=== PATIENT | male | born 1950 | race Caucasian/White ===

== ENCOUNTER → 2016-07-14 | Outpatient (CLI) | payer OTHER ==
[~2016-07-14] MED LIST: ACTOS15 MG PO; AMARYL4 MG PO; ASPIRIN FOR CHI81 MG PO; ASPIRIN81 M1 PO; B12100 MC1 PO; CYCLOBENZAPRINE10 MG PO; DAYPRO600 M1 PO; DICLOFENAC SOD75 MG PO; GRALISE300 M1 PO; HYDROCODONE/ACE1 T12 PO; LISINOPRIL2.5 MG PO; LOVASTATIN20 MG PO; MELOXICAM7.5 MG PO; METFORMIN1000 MG PO; MEVACOR20 MG PO; NATURE'S BLEND500 M1 PO; NEXIUM40 MG PO; PRILOSEC40 MG PO; TAMSULOSIN HYD0.4 MG PO; TEMAZEPAM30 MG PO; TIZANIDINE4 MG PO; VICODIN 500 MG-1 TAB PO; VITAMIN D31000 IU PO; [UNRECOGNIZED DRUG - REMARK]
== END | disposition home or self-care (01) ==
LOC: CT 07-10 10:00
DX: I25.10 Atherosclerotic heart disease of native coronary artery without angina pectoris (principal); J44.9 Chronic obstructive pulmonary disease, unspecified; Q85.8 Other phakomatoses, not elsewhere classified; Z87.891 Personal history of nicotine dependence

== ENCOUNTER 2016-10-26 09:31 | Emergency (ER) | payer OTHER ==
[~2016-10-26] VITALS: Ht 167.6 cm; Wt 106.6 kg
[2016-10-26 10:24] LABS: BASO # 0.1 10*3/uL (0.0-0.1); BASO % 0.6 % (0.0-1.0); EOS # 0.2 10*3/uL (0.0-0.4); EOS % 2.8 % (1.0-4.0); HEMATOCRIT 37.4 % (42.0-52.0); HEMOGLOBIN 12.1 g/dl (14.0-18.0); LYMPH # 2.5 10*3/uL (1.3-4.4); LYMPH % 31.1 % (27.0-41.0); MEAN CELL VOLUME 91.9 fl (80.0-94.0); MEAN CORPUSCULAR HGB 29.7 pg (27.0-31.0); MEAN CORPUSCULAR HGB CONC 32.4 g/dl (33.0-37.0); MEAN PLATELET VOLUME 10.7 fl (9.6-12.3); MONO # 0.5 10*3/uL (0.1-1.0); MONO % 5.5 % (3.0-9.0); NEUT # 4.9 10*3/uL (2.3-7.9); NEUT % 59.6 % (47.0-73.0); PLATELET COUNT AUTOMATED 212 10*3/uL (130-400); RED BLOOD COUNT 4.07 10*6/uL (4.50-5.90); RED CELL DISTRI WIDTH 14.6 % (0-14.5); WHITE BLOOD COUNT 8.2 10*3/uL (4.8-10.8)
[2016-10-26 10:41] LABS: ALBUMIN 3.3 gm/dl (3.1-4.5); BILIRUBIN, TOTAL 0.5 mg/dl (0.2-1.0); BUN 18 mg/dl (7-24); CARBON DIOXIDE 25 mmol/L (21-32); CHLORIDE 108 mmol/L (98-107); EST GLOM FILT AFRICAN AMERICAN > 60 ml/min; GLUCOSE 154 mg/dL (65-99); POTASSIUM 4.4 mmol/L (3.5-5.1); SGOT/AST 44 IU/L (3-35); SGPT/ALT 45 U/L (12-78); SODIUM 139 mmol/L (136-145); TOTAL PROTEIN 7.8 gm/dL (6.4-8.2)
[2016-10-26 10:42] LABS: ALKALINE PHOSPHATASE 69 U/L (45-117)
== END 2016-10-26 11:13 | disposition home or self-care (01) ==
LOC: ED 09:31
PROVIDERS: Registered Nurse
DX: R45.1 Restlessness and agitation (principal); R51 Headache; T42.8X5A Adverse effect of antiparkinsonism drugs and other central muscle-tone depressants, initial encounter; I10 Essential (primary) hypertension; Z79.899 Other long term (current) drug therapy; Z79.82 Long term (current) use of aspirin; E11.40 Type 2 diabetes mellitus with diabetic neuropathy, unspecified; Z79.4 Long term (current) use of insulin; Y92.9 Unspecified place or not applicable

== ENCOUNTER → 2017-08-31 | Outpatient (CLI) | payer OTHER | END | disposition home or self-care (01) | LOC: CT 15:51 | DX: R31.9 Hematuria, unspecified (principal) ==

== ENCOUNTER → 2017-09-19 | Outpatient (CLI) | payer OTHER ==
[2017-09-19 13:41] LABS: BASO # 0.1 10*3/uL (0.0-0.1); BASO % 0.9 % (0.0-1.0); EOS # 0.2 10*3/uL (0.0-0.4); EOS % 3.4 % (1.0-4.0); HEMATOCRIT 38.8 % (42.0-52.0); HEMOGLOBIN 12.4 g/dl (14.0-18.0); LYMPH % 28.3 % (27.0-41.0); MEAN CELL VOLUME 94.6 fl (80.0-94.0); MEAN CORPUSCULAR HGB 30.2 pg (27.0-31.0); MEAN PLATELET VOLUME 10.5 fl (9.6-12.3); MONO # 0.5 10*3/uL (0.1-1.0); MONO % 6.6 % (3.0-9.0); NEUT # 4.3 10*3/uL (2.3-7.9); NEUT % 60.7 % (47.0-73.0); PLATELET COUNT AUTOMATED 193 10*3/uL (130-400); RED CELL DISTRI WIDTH 12.3 % (0-14.5)
[2017-09-19 14:12] LABS: ALBUMIN 3.6 gm/dl (3.1-4.5); BUN 15 mg/dl (7-24); CHLORIDE 108 mmol/L (98-107); CREATININE 1.05 mg/dL (0.70-1.30); POTASSIUM 4.5 mmol/L (3.5-5.1); SGOT/AST 31 IU/L (3-35); SGPT/ALT 37 U/L (12-78); SODIUM 140 mmol/L (136-145); TOTAL PROTEIN 7.7 gm/dL (6.4-8.2)
[2017-09-19 14:14] LABS: ALKALINE PHOSPHATASE 50 U/L (45-117)
== END | disposition home or self-care (01) ==
LOC: US 12:46 → LAB 12:46 → US 13:00
PROVIDERS: Nurse Practitioner Family
DX: Z12.5 Encounter for screening for malignant neoplasm of prostate (principal); I10 Essential (primary) hypertension; E11.9 Type 2 diabetes mellitus without complications; D40.0 Neoplasm of uncertain behavior of prostate; N39.0 Urinary tract infection, site not specified; N20.0 Calculus of kidney; R31.9 Hematuria, unspecified

== ENCOUNTER → 2017-10-20 | Outpatient (CLI) | payer OTHER ==
[~2017-10-20] MED LIST changes: +ATENOLOL25 MG PO; +ELIQUIS5 M1 PO; +GLUCOPHAGE1000 MG PO; +MULTIVITAMINS1 EAC6 PO; +PROSCAR5 M1 PO; +SUPER BETA PROSTATE PO; +VITAMIN B122500 MC1 PO
[2017-10-20 13:10] LABS: BILIRUBIN NEGATIVE (NEGATIVE); BLOOD NEGATIVE (NEGATIVE); CLARITY CLEAR (CLEAR); COLOR YELLOW (YELLOW); GLUCOSE TRACE (NEGATIVE); KETONE NEGATIVE (NEGATIVE); LEUKO ESTERASE NEGATIVE (NEGATIVE); NITRITE NEGATIVE (NEGATIVE); PH 5.5 (5.0-9.0); SPECIFIC GRAVITY 1.025 (1.005-1.030); UROBILINOGEN 0.2 E.U./dl (0.2-1.0)
== END | disposition home or self-care (01) ==
LOC: LAB 12:34
PROVIDERS: Urology
DX: R31.9 Hematuria, unspecified (principal)

== ENCOUNTER → 2017-11-09 | Outpatient (CLI) | payer OTHER ==
--- NOTE | ~2017-11-09 | ST ---
[place], [place] EXERCISE STRESS TEST REPORT NAME: [facility]SON THEODORE [facility] [id number] UNIT #: [id number] ROOM: DOCTOR: NAVYA GOODSON MD BIRTHDATE: [birth year] DOS: REASON FOR TESTING: Evaluation preop. The patient is placed on a monitor. He remained on sinus rhythm with a heart rate of 53 with a blood pressure 134/64. The patient was injected with Lexiscan 0.4 mg. He did not have any complaints other than some mild shortness of breath. Remained in sinus without any ST-T wave changes or arrhythmias. After the Lexiscan infusion was over, he was injected with Cardiolite and stress images were taken. ASSESSMENT AND PLAN: Lexiscan infusion without any ST-T wave changes or arrhythmias. Cardiolite images pending. NAVYA GOODSON MD CM:STRESS:EXERCISE STRESS TEST REPORT [id number] NAVYA GOODSON MD
== END | disposition home or self-care (01) ==
LOC: CARD 01:28
DX: Z01.818 Encounter for other preprocedural examination (principal); R94.31 Abnormal electrocardiogram [ECG] [EKG]; R94.39 Abnormal result of other cardiovascular function study; R53.81 Other malaise

== ENCOUNTER → 2018-03-16 | Outpatient (CLI) | payer OTHER ==
[2018-03-16 14:48] LABS: BASO # 0.1 10*3/uL (0.0-0.1); BASO % 0.9 % (0.0-1.0); EOS # 0.3 10*3/uL (0.0-0.4); HEMATOCRIT 34.3 % (42.0-52.0); HEMOGLOBIN 10.4 g/dl (14.0-18.0); LYMPH # 2.1 10*3/uL (1.3-4.4); LYMPH % 21.4 % (27.0-41.0); MEAN CELL VOLUME 88.9 fl (80.0-94.0); MEAN CORPUSCULAR HGB 26.9 pg (27.0-31.0); MEAN CORPUSCULAR HGB CONC 30.3 g/dl (33.0-37.0); MEAN PLATELET VOLUME 10.6 fl (9.6-12.3); MONO # 0.7 10*3/uL (0.1-1.0); MONO % 7.2 % (3.0-9.0); NEUT # 6.5 10*3/uL (2.3-7.9); PLATELET COUNT AUTOMATED 245 10*3/uL (130-400); RED BLOOD COUNT 3.86 10*6/uL (4.50-5.90); RED CELL DISTRI WIDTH 14.6 % (0-14.5); WHITE BLOOD COUNT 9.7 10*3/uL (4.8-10.8)
[2018-03-16 15:05] LABS: ALBUMIN 3.4 gm/dl (3.1-4.5); CREATININE 1.86 mg/dL (0.70-1.30); POTASSIUM 5.2 mmol/L (3.5-5.1); TOTAL PROTEIN 7.6 gm/dL (6.4-8.2)
[2018-03-18 13:03] LABS: PROSTATE SPECIFIC AG FREE 0.65 ng/mL
== END | disposition home or self-care (01) ==
LOC: LAB 14:11
PROVIDERS: Urology
DX: D40.0 Neoplasm of uncertain behavior of prostate (principal); I10 Essential (primary) hypertension

== ENCOUNTER → 2018-05-06 | Outpatient (CLI) | payer OTHER ==
[~2018-05-06] MED LIST changes: +PREDNISONE50 MG PO; +ROBAXIN500 M1 PO
== END | disposition home or self-care (01) ==
LOC: RAD 19:16
DX: M51.36 Other intervertebral disc degeneration, lumbar region (principal); M43.16 Spondylolisthesis, lumbar region

== ENCOUNTER → 2018-06-20 | Outpatient (CLI) | payer OTHER ==
[2018-06-20 11:02] LABS: ALBUMIN 3.1 gm/dl (3.1-4.5); ALKALINE PHOSPHATASE 55 U/L (45-117); BUN 19 mg/dl (7-24); CHLORIDE 109 mmol/L (98-107); CREATININE 1.32 mg/dL (0.70-1.30); SGOT/AST 19 IU/L (3-35); SGPT/ALT 28 U/L (12-78); SODIUM 141 mmol/L (136-145); T3 UPTAKE 39 % (31-39); THYROXINE (T4) TOTAL 13.8 ug/dl (4.5-12.1); TOTAL PROTEIN 7.2 gm/dL (6.4-8.2)
== END | disposition home or self-care (01) ==
LOC: LAB 10:05
PROVIDERS: Internal Medicine Cardiovascular Disease
DX: I48.91 Unspecified atrial fibrillation (principal); Z79.899 Other long term (current) drug therapy

== ENCOUNTER → 2018-10-02 | Outpatient (CLI) | payer OTHER | END | disposition home or self-care (01) | LOC: LAB 17:10 | DX: D40.0 Neoplasm of uncertain behavior of prostate (principal) ==

== ENCOUNTER → 2018-11-14 | Outpatient (CLI) | payer OTHER ==
[2018-11-16 09:07] LABS: PROSTATE SPECIFIC AG FREE 1.67 ng/mL; PROSTATE SPECIFIC AG, SERUM 5.4 ng/mL (0.0-4.0)
== END | disposition home or self-care (01) ==
LOC: LAB 20:12
PROVIDERS: Nurse Practitioner Family
DX: R97.20 Elevated prostate specific antigen [PSA] (principal)

== ENCOUNTER → 2018-12-23 | Outpatient (CLI) | payer OTHER ==
--- NOTE | ~2018-12-23 | EKG ---
[place], [place] ELECTROCARDIOGRAM REPORT NAME: NELSON THEODORE UNIT #: [id number] ROOM: DOCTOR: EPIPHANY DRAFT REPORT BIRTHDATE: [birth year] [facility] Test Date: 2018-12-23 Test Time: 12:01:44 Pat Name: NELSON THEODORE Department: Room: Gender: Turn Supervisor: Lisa Portillo : 1950 Requested By: JAELYN SPEARS Order Number: [id number] Reading MD: Allen Ortiz MD Measurements Intervals [place] Rate: 49 P: 10 TX: 255 QRS: -32 QRSD: 96 T: 46 QT: 463 QTc: 418 Interpretive Statements Sinus bradycardia Prolonged TX interval Abnormal R-wave progression, late transition Inferior infarct, old No previous ECG available for comparison Electronically Signed On 12-23-2018 14:44:46 PDT by Allen Ortiz MD CM:EKGRPT:ELECTROCARDIOGRAM REPORT 1201 [id number] JAELYN CRUZ DRAFT REPORT JAELYN SPEARS
[2018-12-23 11:49] LABS: BASO % 0.7 % (0.0-1.0); EOS # 0.2 10*3/uL (0.0-0.4); EOS % 3.3 % (1.0-4.0); HEMOGLOBIN 10.6 g/dl (14.0-18.0); LYMPH # 1.3 10*3/uL (1.3-4.4); LYMPH % 20.8 % (27.0-41.0); MEAN CELL VOLUME 97.7 fl (80.0-94.0); MEAN CORPUSCULAR HGB 30.5 pg (27.0-31.0); MEAN CORPUSCULAR HGB CONC 31.2 g/dl (33.0-37.0); MEAN PLATELET VOLUME 10.5 fl (9.6-12.3); MONO # 0.5 10*3/uL (0.1-1.0); MONO % 8.3 % (3.0-9.0); NEUT % 66.2 % (47.0-73.0); PLATELET COUNT AUTOMATED 178 10*3/uL (130-400); RED BLOOD COUNT 3.48 10*6/uL (4.50-5.90); RED CELL DISTRI WIDTH 13.2 % (0-14.5); WHITE BLOOD COUNT 6.1 10*3/uL (4.8-10.8)
[2018-12-23 12:04] LABS: ACT PARTIAL THROMBO TIME 26.3 SECONDS (20.0-32.1); INTERNATIONAL NORM RATIO 0.9 (2.0-3.5)
[2018-12-23 12:16] LABS: ALBUMIN 3.4 gm/dl (3.1-4.5); CREATININE 1.64 mg/dL (0.70-1.30); POTASSIUM 5.6 mmol/L (3.5-5.1); TOTAL PROTEIN 7.3 gm/dL (6.4-8.2)
== END | disposition home or self-care (01) ==
LOC: LAB 10:24
PROVIDERS: Nurse Practitioner Family
DX: Z01.812 Encounter for preprocedural laboratory examination (principal); R00.1 Bradycardia, unspecified

== ENCOUNTER 2019-01-06 14:14 | Inpatient (IN) | payer OTHER ==
[~2019-01-06] VITALS: Ht 167.6 cm; Wt 91.4 kg
[2019-01-06 14:15] VITALS: BP 167/75
[2019-01-06 15:09] LABS: BASO # 0.1 10*3/uL (0.0-0.1); BASO % 0.7 % (0.0-1.0); EOS # 0.3 10*3/uL (0.0-0.4); EOS % 3.2 % (1.0-4.0); HEMATOCRIT 38.8 % (42.0-52.0); HEMOGLOBIN 12.1 g/dl (14.0-18.0); LYMPH # 2.4 10*3/uL (1.3-4.4); MEAN CELL VOLUME 98.5 fl (80.0-94.0); MEAN CORPUSCULAR HGB 30.7 pg (27.0-31.0); MEAN CORPUSCULAR HGB CONC 31.2 g/dl (33.0-37.0); MEAN PLATELET VOLUME 9.5 fl (9.6-12.3); MONO # 0.7 10*3/uL (0.1-1.0); MONO % 7.6 % (3.0-9.0); NEUT # 5.9 10*3/uL (2.3-7.9); NEUT % 63.1 % (47.0-73.0); PLATELET COUNT AUTOMATED 288 10*3/uL (130-400); RED BLOOD COUNT 3.94 10*6/uL (4.50-5.90); RED CELL DISTRI WIDTH 13.3 % (0-14.5); WHITE BLOOD COUNT 9.4 10*3/uL (4.8-10.8)
[2019-01-06 15:24] LABS: ALBUMIN 3.8 gm/dl (3.1-4.5); CREATININE 2.09 mg/dL (0.70-1.30); POTASSIUM 5.8 mmol/L (3.5-5.1); TOTAL PROTEIN 8.2 gm/dL (6.4-8.2)
[2019-01-06 15:27] LABS: ACT PARTIAL THROMBO TIME 30.3 SECONDS (20.0-32.1)
[2019-01-06 15:28] LABS: TROPONIN I 0.087 ng/ml (<0.045)
--- NOTE | 2019-01-06 15:28 | NUR ---
GLUCOSE 42, TROPONIN 0.087 C. RONA NOTIFIED
[2019-01-06 15:36] LABS: BILIRUBIN 1+ (NEGATIVE); BLOOD 1+ (NEGATIVE); CLARITY CLEAR (CLEAR); COLOR YELLOW (YELLOW); GLUCOSE NEGATIVE (NEGATIVE); KETONE TRACE (NEGATIVE); LEUKO ESTERASE NEGATIVE (NEGATIVE); NITRITE NEGATIVE (NEGATIVE); SPECIFIC GRAVITY >= 1.030 (1.005-1.030); UROBILINOGEN 0.2 E.U./dl (0.2-1.0)
--- NOTE | 2019-01-06 15:40 | NUR ---
PT GIVEN RK CRACKERS AND ORANGE JUICE FOR LOW BLOOD SUGAR. REFUSING IV AT THIS TIME.
[2019-01-06 15:46] LABS: BACTERIA 2+; EPITHELIAL CELLS 16-20; MUCOUS TRACE
[2019-01-06 17:00] VITALS: BP 155/62
--- NOTE | 2019-01-06 17:12 | NUR ---
A 68, admitted to , under the services of NAVYA Baum MD with a diagnosis of Abnormal EKG Elevated Troponin. Chief complaint is basic needs/other complaints. Patient arrived via stretcher from ER. Monitor applied. Initial assessment completed. Vital signs taken and recorded. NAVYA BAUM MD notified of admission to the unit. Orders received. See assessment for past medical history, medications and allergies. Patient and/or family oriented to unit. [address] visitation policy reviewed. Clothing/patient valuable form completed. ANA GREENBERG
[2019-01-06] MEDS ORDERED: AMIODARONE HYD200 MG PO (17:32)
[2019-01-06] MEDS ORDERED: CELEBREX100 MG PO (17:36)
[2019-01-06] MEDS ORDERED: Mysoline50 MG PO (17:38)
[2019-01-06] MEDS ORDERED: LIPITOR20 MG PO (17:39)
[2019-01-06] MEDS ORDERED: NORCO 7.5-3251 EACH PO (17:40)
--- NOTE | 2019-01-06 17:46 | NUR ---
Notified of patients arrival to unit. See new orders.
[2019-01-06 20:00] VITALS: BP 155/75
[2019-01-07] VITALS: BP 138/53
[2019-01-07 06:19] LABS: BASO # 0.1 10*3/uL (0.0-0.1); BASO % 0.8 % (0.0-1.0); EOS # 0.2 10*3/uL (0.0-0.4); EOS % 3.1 % (1.0-4.0); HEMATOCRIT 33.2 % (42.0-52.0); HEMOGLOBIN 10.3 g/dl (14.0-18.0); LYMPH # 2.3 10*3/uL (1.3-4.4); LYMPH % 31.6 % (27.0-41.0); MEAN CELL VOLUME 97.6 fl (80.0-94.0); MEAN CORPUSCULAR HGB 30.3 pg (27.0-31.0); MEAN PLATELET VOLUME 10.5 fl (9.6-12.3); MONO # 0.7 10*3/uL (0.1-1.0); NEUT # 3.9 10*3/uL (2.3-7.9); PLATELET COUNT AUTOMATED 230 10*3/uL (130-400); RED CELL DISTRI WIDTH 13.4 % (0-14.5); WHITE BLOOD COUNT 7.3 10*3/uL (4.8-10.8)
[2019-01-07 06:40] LABS: ALBUMIN 3.2 gm/dl (3.1-4.5); CREATININE 1.98 mg/dL (0.70-1.30); TOTAL PROTEIN 6.7 gm/dL (6.4-8.2)
[2019-01-07 06:42] LABS: POTASSIUM 4.7 mmol/L (3.5-5.1)
[2019-01-07 08:00] VITALS: BP 148/82
--- NOTE | 2019-01-07 08:00 | NUR ---
TOOK OVER CARE OF PT, PT LYING IN BED. ALERT ORIENTED AND PLEASANT MOOD WITH NO COMPLAINTS VOICED. RESPIRATIONS EASY AND UNLABORED ON ROOM AIR. IV FLUIDS INFUSING PER PHYSICIAN ORDERS. ALL NEEDS MET, ASSESSMENT COMPLETE. CALL LIGHT IN REACH.
--- NOTE | 2019-01-07 10:00 | NUR ---
Cement Storage Worker in to talk to patient. Patient states lives at home with his girlfriend. There are 13 steps in the home. Physician: Dr. Lorraine Abebe [facility] Home health services: none Patient's level of ADLs: MINIMAL ASSIST Patient has working utilities: yes DME: cane Follow-up physician's appointment after d/c: he prefers to make his own follow up appt after discharge Does patient want to access PORTAL?: no Discharge plan discussed with patient. He lives at home with his girlfriend. He is independent in his ADLs and occasionally ambulates with a cane when out in public. Discussed home health care services and he denies any home needs at this time. When medically stable he will be discharged to home. Girlfriend will provide transportation on discharge. [address]
[2019-01-07 12:00] VITALS: BP 156/70
--- NOTE | 2019-01-07 13:50 | NUR ---
CLARIFIED WITH DR GOODSON THAT PT IS TO HAVE AMARYL, GLUCOPHAGE, AND CELEBREX DISCONTINUED PER THE CONVERSATION THAT WE HAD THIS MORNING. NEW ORDERS RECEIVED FOR CBC WITH DIFF AND BMP IN THE MORNING. ORDERS FOR THOSE LABS ARE ALREADY IN FOR AM.
--- NOTE | 2019-01-07 14:55 | NUR ---
PT LYING IN BED. ALERT ORIENTED AND PLEASANT MOOD WITH NO COMPLAINTS. SCHEDULED MEDICATIONS GIVEN AT THIS TIME. PT DENIES NEEDING ANYTHING. IV FLUIDS INFUSING PER ORDER. ALL SAFETY MEASURES IN PLACE. CALL LIGHT IN REACH.
[2019-01-07 16:11] VITALS: BP 126/37
[2019-01-07 20:00] VITALS: BP 149/71
[2019-01-08] VITALS: BP 159/90
[2019-01-08 07:05] LABS: BASO # 0.1 10*3/uL (0.0-0.1); BASO % 0.7 % (0.0-1.0); EOS # 0.3 10*3/uL (0.0-0.4); EOS % 3.7 % (1.0-4.0); HEMATOCRIT 35.1 % (42.0-52.0); LYMPH # 1.9 10*3/uL (1.3-4.4); LYMPH % 27.6 % (27.0-41.0); MEAN CORPUSCULAR HGB 30.4 pg (27.0-31.0); MEAN CORPUSCULAR HGB CONC 31.3 g/dl (33.0-37.0); MEAN PLATELET VOLUME 10.4 fl (9.6-12.3); MONO # 0.6 10*3/uL (0.1-1.0); MONO % 8.5 % (3.0-9.0); NEUT # 4.1 10*3/uL (2.3-7.9); NEUT % 58.9 % (47.0-73.0); PLATELET COUNT AUTOMATED 233 10*3/uL (130-400); RED BLOOD COUNT 3.62 10*6/uL (4.50-5.90); RED CELL DISTRI WIDTH 13.1 % (0-14.5)
[2019-01-08 07:37] LABS: CREATININE 1.62 mg/dL (0.70-1.30); POTASSIUM 4.3 mmol/L (3.5-5.1)
--- NOTE | 2019-01-08 08:05 | NUR ---
24 HR chart check completed.
--- NOTE | 2019-01-08 08:11 | NUR ---
24 HR chart check completed.
[2019-01-08] MEDS ORDERED: LISINOPRIL2.5 MG PO (09:19)
--- NOTE | 2019-01-08 11:50 | NUR ---
PATIENT DISCHARGE INFORMATION EXPLAINED TO HIM AT THIS TIME, ALL QUESTIONS ANSWERED TO HIS SATISFACTION. IV AND MONITOR REMOVED. COPY OF DISCHARGE INFORMATION GIVEN TO PATIENT. PATIENT TAKEN TO [facility] VIA WHEELCHAIR.
== END 2019-01-08 11:50 | disposition home or self-care (01) | DRG 70 ==
LOC: ED 14:14 → 4E 15:46 → EDHOLD 15:46 → 4E 16:38
PROVIDERS: Physician Assistant; ADMIT Internal Medicine
DX: G93.41 Metabolic encephalopathy (principal); N17.0 Acute kidney failure with tubular necrosis; I48.21 Permanent atrial fibrillation; N17.9 Acute kidney failure, unspecified; E11.649 Type 2 diabetes mellitus with hypoglycemia without coma; M54.5 Low back pain; N18.3 Chronic kidney disease, stage 3 (moderate); M15.9 Polyosteoarthritis, unspecified; I12.9 Hypertensive chronic kidney disease with stage 1 through stage 4 chronic kidney disease, or unspecified chronic kidney disease; E87.5 Hyperkalemia; E78.5 Hyperlipidemia, unspecified; E11.22 Type 2 diabetes mellitus with diabetic chronic kidney disease; I25.10 Atherosclerotic heart disease of native coronary artery without angina pectoris; G89.29 Other chronic pain; R79.89 Other specified abnormal findings of blood chemistry; Z98.49 Cataract extraction status, unspecified eye; Z82.49 Family history of ischemic heart disease and other diseases of the circulatory system; Z79.4 Long term (current) use of insulin; Z95.1 Presence of aortocoronary bypass graft; Z87.891 Personal history of nicotine dependence

== ENCOUNTER → 2019-02-01 | Outpatient (CLI) | payer OTHER ==
[~2019-02-01] MED LIST changes: +AMIODARONE HYD200 MG PO; +CELEBREX100 MG PO; +LIPITOR20 MG PO; +Mysoline50 MG PO; +NORCO 7.5-3251 EACH PO
[2019-02-02 07:05] LABS: PROSTATE SPECIFIC AG FREE 2.36 ng/mL; PROSTATE SPECIFIC AG, SERUM 7.5 ng/mL (0.0-4.0)
== END | disposition home or self-care (01) ==
LOC: LAB 10:03
PROVIDERS: Nurse Practitioner Family
DX: R97.20 Elevated prostate specific antigen [PSA] (principal)

== ENCOUNTER → 2019-03-10 | Outpatient (CLI) | payer OTHER ==
[2019-03-10 17:47] LABS: BASO # 0.1 10*3/uL (0.0-0.1); BASO % 1.1 % (0.0-1.0); EOS # 0.3 10*3/uL (0.0-0.4); EOS % 4.9 % (1.0-4.0); HEMATOCRIT 32.9 % (42.0-52.0); HEMOGLOBIN 10.1 g/dl (14.0-18.0); LYMPH # 1.3 10*3/uL (1.3-4.4); LYMPH % 23.7 % (27.0-41.0); MEAN CELL VOLUME 90.9 fl (80.0-94.0); MEAN CORPUSCULAR HGB 27.9 pg (27.0-31.0); MEAN CORPUSCULAR HGB CONC 30.7 g/dl (33.0-37.0); MEAN PLATELET VOLUME 10.3 fl (9.6-12.3); MONO # 0.5 10*3/uL (0.1-1.0); MONO % 9.1 % (3.0-9.0); NEUT # 3.2 10*3/uL (2.3-7.9); NEUT % 60.6 % (47.0-73.0); PLATELET COUNT AUTOMATED 177 10*3/uL (130-400); RED BLOOD COUNT 3.62 10*6/uL (4.50-5.90); RED CELL DISTRI WIDTH 13.2 % (0-14.5); WHITE BLOOD COUNT 5.3 10*3/uL (4.8-10.8)
[2019-03-10 18:00] LABS: ALBUMIN 3.2 gm/dl (3.1-4.5); CREATININE 1.68 mg/dL (0.70-1.30); POTASSIUM 4.3 mmol/L (3.5-5.1); TOTAL PROTEIN 7.2 gm/dL (6.4-8.2)
== END | disposition home or self-care (01) ==
LOC: LAB 17:19
PROVIDERS: Urology
DX: D40.0 Neoplasm of uncertain behavior of prostate (principal)

== ENCOUNTER → 2019-03-13 | Outpatient (CLI) | payer OTHER ==
[2019-03-13 16:24] LABS: FERRITIN 10.4 ng/mL (22.0-322.0)
== END | disposition home or self-care (01) ==
LOC: LAB 14:55
PROVIDERS: Internal Medicine
DX: D64.9 Anemia, unspecified (principal)

== ENCOUNTER → 2019-05-13 | Outpatient (CLI) | payer OTHER ==
[2019-05-14 09:08] LABS: PROSTATE SPECIFIC AG FREE 7.24 ng/mL; PROSTATE SPECIFIC AG, SERUM 15.8 ng/mL (0.0-4.0)
== END | disposition home or self-care (01) ==
LOC: LAB 12:19
PROVIDERS: Nurse Practitioner Family
DX: D40.0 Neoplasm of uncertain behavior of prostate (principal)

== ENCOUNTER → 2019-06-21 | Outpatient (CLI) | payer OTHER ==
[2019-06-21 17:25] LABS: BASO # 0.1 10*3/uL (0.0-0.1); BASO % 0.7 % (0.0-1.0); EOS # 0.3 10*3/uL (0.0-0.4); EOS % 3.1 % (1.0-4.0); HEMATOCRIT 37.6 % (42.0-52.0); HEMOGLOBIN 11.7 g/dl (14.0-18.0); LYMPH % 23.7 % (27.0-41.0); MEAN CELL VOLUME 91.3 fl (80.0-94.0); MEAN CORPUSCULAR HGB 28.4 pg (27.0-31.0); MEAN CORPUSCULAR HGB CONC 31.1 g/dl (33.0-37.0); MEAN PLATELET VOLUME 9.9 fl (9.6-12.3); MONO # 0.6 10*3/uL (0.1-1.0); NEUT # 5.4 10*3/uL (2.3-7.9); NEUT % 64.9 % (47.0-73.0); PLATELET COUNT AUTOMATED 216 10*3/uL (130-400); RED BLOOD COUNT 4.12 10*6/uL (4.50-5.90); RED CELL DISTRI WIDTH 14.6 % (0-14.5); WHITE BLOOD COUNT 8.4 10*3/uL (4.8-10.8)
[2019-06-21 17:40] LABS: ALBUMIN 3.1 gm/dl (3.1-4.5); CREATININE 1.75 mg/dL (0.70-1.30); POTASSIUM 4.7 mmol/L (3.5-5.1); TOTAL PROTEIN 7.1 gm/dL (6.4-8.2)
[2019-06-21 18:07] LABS: ACT PARTIAL THROMBO TIME 31.8 SECONDS (20.0-32.1); INTERNATIONAL NORM RATIO 1.1 (2.0-3.5)
== END | disposition home or self-care (01) ==
LOC: LAB 16:49
PROVIDERS: Nurse Practitioner Family
DX: Z01.818 Encounter for other preprocedural examination (principal); I25.10 Atherosclerotic heart disease of native coronary artery without angina pectoris; I12.9 Hypertensive chronic kidney disease with stage 1 through stage 4 chronic kidney disease, or unspecified chronic kidney disease; N18.3 Chronic kidney disease, stage 3 (moderate); I48.21 Permanent atrial fibrillation; E78.5 Hyperlipidemia, unspecified

== ENCOUNTER → 2019-08-18 | Outpatient (CLI) | payer OTHER ==
[2019-08-18 14:12] LABS: BASO % 0.5 % (0.0-1.0); EOS % 0.5 % (1.0-4.0); HEMATOCRIT 36.7 % (42.0-52.0); LYMPH # 1.1 10*3/uL (1.3-4.4); LYMPH % 14.3 % (27.0-41.0); MEAN CELL VOLUME 92.9 fl (80.0-94.0); MEAN CORPUSCULAR HGB 29.9 pg (27.0-31.0); MEAN CORPUSCULAR HGB CONC 32.2 g/dl (33.0-37.0); MEAN PLATELET VOLUME 9.5 fl (9.6-12.3); MONO # 0.6 10*3/uL (0.1-1.0); MONO % 7.2 % (3.0-9.0); NEUT % 76.5 % (47.0-73.0); PLATELET COUNT AUTOMATED 244 10*3/uL (130-400); RED BLOOD COUNT 3.95 10*6/uL (4.50-5.90); RED CELL DISTRI WIDTH 13.4 % (0-14.5); WHITE BLOOD COUNT 7.8 10*3/uL (4.8-10.8)
[2019-08-18 14:42] LABS: ALBUMIN 2.9 gm/dl (3.1-4.5); CREATININE 1.82 mg/dL (0.70-1.30); FREE T4 1.28 ng/dl (0.76-1.46); POTASSIUM 5.1 mmol/L (3.5-5.1); TOTAL PROTEIN 7.5 gm/dL (6.4-8.2)
[2019-08-18 14:46] LABS: THYROID STIM HORMONE (HS) 1.74 uIU/ml (0.358-4.75)
[2019-08-18 15:42] LABS: VITAMIN D, 25-HYDROXY 20.9 ng/mL (30-100)
== END | disposition home or self-care (01) ==
LOC: LAB 13:36
PROVIDERS: Internal Medicine
DX: I10 Essential (primary) hypertension (principal); E11.9 Type 2 diabetes mellitus without complications; E78.2 Mixed hyperlipidemia; E55.9 Vitamin D deficiency, unspecified; Z00.00 Encounter for general adult medical examination without abnormal findings; Z79.899 Other long term (current) drug therapy

== ENCOUNTER → 2019-08-21 | Outpatient (CLI) | payer OTHER | END | disposition home or self-care (01) | LOC: CT 11:00 | DX: C79.51 Secondary malignant neoplasm of bone (principal); C77.9 Secondary and unspecified malignant neoplasm of lymph node, unspecified; C61 Malignant neoplasm of prostate; R59.9 Enlarged lymph nodes, unspecified; N40.0 Benign prostatic hyperplasia without lower urinary tract symptoms; R91.8 Other nonspecific abnormal finding of lung field; N28.89 Other specified disorders of kidney and ureter ==

== ENCOUNTER → 2019-08-27 | Outpatient (CLI) | payer OTHER | END | disposition home or self-care (01) | LOC: NM 10:00 | DX: C61 Malignant neoplasm of prostate (principal) ==

== ENCOUNTER → 2019-09-03 | Outpatient (CLI) | payer OTHER ==
[2019-09-04 10:04] LABS: PROSTATE SPECIFIC AG FREE >50.00 ng/mL
== END | disposition home or self-care (01) ==
LOC: LAB 12:58
PROVIDERS: Nurse Practitioner Family
DX: C61 Malignant neoplasm of prostate (principal)

== ENCOUNTER → 2019-11-24 | Outpatient (CLI) | payer OTHER ==
[2019-11-24 11:50] LABS: BASO % 0.5 % (0.0-1.0); EOS # 0.1 10*3/uL (0.0-0.4); EOS % 2.3 % (1.0-4.0); HEMATOCRIT 33.3 % (42.0-52.0); LYMPH # 1.1 10*3/uL (1.3-4.4); LYMPH % 19.1 % (27.0-41.0); MEAN CELL VOLUME 97.1 fl (80.0-94.0); MEAN CORPUSCULAR HGB CONC 30.9 g/dl (33.0-37.0); MEAN PLATELET VOLUME 10.6 fl (9.6-12.3); MONO # 0.5 10*3/uL (0.1-1.0); MONO % 7.9 % (3.0-9.0); NEUT # 4.2 10*3/uL (2.3-7.9); NEUT % 69.7 % (47.0-73.0); PLATELET COUNT AUTOMATED 200 10*3/uL (130-400); RED BLOOD COUNT 3.43 10*6/uL (4.50-5.90)
[2019-11-24 11:59] LABS: ALBUMIN 2.7 gm/dl (3.1-4.5); CREATININE 1.8 mg/dL (0.70-1.30); POTASSIUM 5.1 mmol/L (3.5-5.1); TOTAL PROTEIN 6.9 gm/dL (6.4-8.2)
[2019-11-24 12:56] LABS: VITAMIN D, 25-HYDROXY 49.4 ng/mL (30-100)
[2019-11-24 12:57] LABS: TESTOSTERONE, TOTAL < 7 ng/dL (241-827)
== END | disposition home or self-care (01) ==
LOC: LAB 11:21
PROVIDERS: Internal Medicine Hematology & Oncology
DX: E55.9 Vitamin D deficiency, unspecified (principal); C61 Malignant neoplasm of prostate

== ENCOUNTER → 2019-12-18 | Outpatient (CLI) | payer OTHER ==
[2019-12-18 13:22] LABS: BASO % 0.6 % (0.0-1.0); EOS # 0.1 10*3/uL (0.0-0.4); EOS % 1.8 % (1.0-4.0); HEMATOCRIT 34.8 % (42.0-52.0); LYMPH % 13.6 % (27.0-41.0); MEAN CELL VOLUME 96.4 fl (80.0-94.0); MEAN CORPUSCULAR HGB 29.9 pg (27.0-31.0); MONO # 0.6 10*3/uL (0.1-1.0); MONO % 8.7 % (3.0-9.0); NEUT # 5.3 10*3/uL (2.3-7.9); NEUT % 74.6 % (47.0-73.0); PLATELET COUNT AUTOMATED 271 10*3/uL (130-400); RED BLOOD COUNT 3.61 10*6/uL (4.50-5.90); RED CELL DISTRI WIDTH 13.6 % (0-14.5); WHITE BLOOD COUNT 7.2 10*3/uL (4.8-10.8)
[2019-12-18 13:47] LABS: ALBUMIN 2.7 gm/dl (3.1-4.5); CREATININE 1.65 mg/dL (0.70-1.30); POTASSIUM 4.7 mmol/L (3.5-5.1); TOTAL PROTEIN 7.4 gm/dL (6.4-8.2)
== END | disposition home or self-care (01) ==
LOC: LAB 12:47
PROVIDERS: ATTEND Urology
DX: C61 Malignant neoplasm of prostate (principal); R53.83 Other fatigue

== ENCOUNTER → 2019-12-30 | Outpatient (CLI) | payer OTHER ==
[~2019-12-30] MED LIST changes: +ABIRATERONE AC250 MG PO; +BICALUTAMIDE50 MG PO; +CALCIUM CARBON600 M4 PO; +GLIMEPIRIDE4 M1 PO; +MORPHINE SULFAT15 M7 PO; +MYRBETRIQ25 M1 PO; +NATURE'S BLEND F1 MG PO; +POTASSIUM CHLO20 ME3 PO; +PREDNISONE5 MG PO; +SOF-LAX100 MG PO; +VITAMIN D-40010 MCG PO; +VITAMIN D3125 MCG PO; +ZYTIGA500 MG PO
[2019-12-30 17:33] LABS: ALBUMIN 2.6 gm/dl (3.1-4.5); POTASSIUM 5.7 mmol/L (3.5-5.1)
[2019-12-30 17:37] LABS: CREATININE 1.68 mg/dL (0.70-1.30); TOTAL PROTEIN 7.5 gm/dL (6.4-8.2)
== END | disposition home or self-care (01) ==
LOC: LAB 14:54
PROVIDERS: ATTEND Internal Medicine Hematology & Oncology
DX: C61 Malignant neoplasm of prostate (principal)

== ENCOUNTER 2020-01-02 10:09 | Inpatient (IN) | payer OTHER ==
[~2020-01-02] VITALS: Ht 162.6 cm; Wt 84.8 kg
[2020-01-02] VITALS (8 sets, daily range): BP systolic 104–170; BP diastolic 43–69
[~2020-01-02 10:09] MED LIST changes: -ABIRATERONE AC250 MG PO; -BICALUTAMIDE50 MG PO; -CALCIUM CARBON600 M4 PO; -GLIMEPIRIDE4 M1 PO; -MORPHINE SULFAT15 M7 PO; -MYRBETRIQ25 M1 PO; -NATURE'S BLEND F1 MG PO; -POTASSIUM CHLO20 ME3 PO; -PREDNISONE5 MG PO; -SOF-LAX100 MG PO; -VITAMIN D-40010 MCG PO; -VITAMIN D3125 MCG PO; -ZYTIGA500 MG PO
[2020-01-02 10:48] LABS: BASO % 0.3 % (0.0-1.0); EOS % 0.2 % (1.0-4.0); HEMATOCRIT 37.3 % (42.0-52.0); LYMPH # 0.9 10*3/uL (1.3-4.4); LYMPH % 8.5 % (27.0-41.0); MEAN CELL VOLUME 94.7 fl (80.0-94.0); MEAN CORPUSCULAR HGB 29.7 pg (27.0-31.0); MEAN CORPUSCULAR HGB CONC 31.4 g/dl (33.0-37.0); MEAN PLATELET VOLUME 9.2 fl (9.6-12.3); MONO # 0.9 10*3/uL (0.1-1.0); MONO % 8.7 % (3.0-9.0); NEUT # 8.6 10*3/uL (2.3-7.9); NEUT % 80.6 % (47.0-73.0); PLATELET COUNT AUTOMATED 365 10*3/uL (130-400); RED BLOOD COUNT 3.94 10*6/uL (4.50-5.90); RED CELL DISTRI WIDTH 13.2 % (0-14.5); WHITE BLOOD COUNT 10.7 10*3/uL (4.8-10.8)
--- NOTE | 2020-01-02 10:56 | NUR ---
PT PULSE OX 100% AT 4LPM REDUCED TO 2LPM
[2020-01-02 10:58] LABS: INTERNATIONAL NORM RATIO 1.3 (2.0-3.5)
[2020-01-02 11:07] LABS: ALBUMIN 2.6 gm/dl (3.1-4.5); ALKALINE PHOSPHATASE 510 U/L (45-117); BUN 21 mg/dl (7-24); CHLORIDE 110 mmol/L (98-107); CREATININE 1.54 mg/dL (0.70-1.30); LIPASE 185 U/L (73-393); SGOT/AST 48 IU/L (3-35); SGPT/ALT 17 U/L (12-78); SODIUM 138 mmol/L (136-145); TOTAL PROTEIN 7.9 gm/dL (6.4-8.2)
[2020-01-02 11:08] LABS: TROPONIN I < 0.015 ng/ml (<0.045)
--- NOTE | 2020-01-02 11:21 | NUR ---
EMS REPORT OF PT BLOOD SUGAR AT 148
[2020-01-02 13:35] LABS: BILIRUBIN Negative (Negative); BLOOD Negative (Negative); CLARITY Cloudy (Clear); COLOR Yellow (Yellow); GLUCOSE Trace (Negative); KETONE Negative (Negative); LEUKO ESTERASE Negative (Negative); NITRITE Negative (Negative)
[2020-01-02 13:41] LABS: BACTERIA 4+; MUCOUS 1+
--- NOTE | 2020-01-02 13:55 | NUR ---
PT NOW ALERT ORIENTED HAS NO REQUESTS AT THIS TIME
--- NOTE | 2020-01-02 14:06 | NUR ---
GLUCOSE 15 DR GOMES NOTIFIED
--- NOTE | 2020-01-02 14:15 | NUR ---
PT BECAME NORE LETHARGIC PT REPEAT BGL WAS 15 PT GIVEN SECOND D50 AMP PT MORE ALERT AT PRESENT
[2020-01-02] MEDS ORDERED: LISINOPRIL2.5 MG PO (15:15)
[2020-01-02] MEDS ORDERED: GLIMEPIRIDE4 M1 PO (15:15)
[2020-01-02] MEDS ORDERED: SOF-LAX100 MG PO (15:16)
[2020-01-02] MEDS ORDERED: POTASSIUM CHLO20 ME3 PO (15:17)
[2020-01-02] MEDS ORDERED: NATURE'S BLEND F1 MG PO (15:19)
[2020-01-02] MEDS ORDERED: VITAMIN D-40010 MCG PO (15:23)
[2020-01-02] MEDS ORDERED: BICALUTAMIDE50 MG PO (15:25)
[2020-01-02] MEDS ORDERED: MYRBETRIQ25 M1 PO (15:27)
[2020-01-02] MEDS ORDERED: CALCIUM CARBON600 M4 PO (15:30)
[2020-01-02] MEDS ORDERED: ABIRATERONE AC250 MG PO (15:31)
[2020-01-02] MEDS ORDERED: ZYTIGA500 MG PO (15:33)
[2020-01-02] MEDS ORDERED: VITAMIN D3125 MCG PO (15:36)
[2020-01-02] MEDS ORDERED: PREDNISONE5 MG PO (15:37)
[2020-01-02] MEDS ORDERED: MORPHINE SULFAT15 M7 PO (15:39)
--- NOTE | 2020-01-02 15:59 | NUR ---
SPOKE WITH DR GOODSON. SHE GAVE ORDERS TO GIVE PATIENT AN AMP OF D50 SINCE PATIENT'S BLOOD SUGAR WAS 56 UPON ARRIVAL TO THE FLOOR. SHE ALSO GAVE ORDERS TO RUN D5W AT 70 ML/HR, BMP AND CBC IN THE MORNING, BLOOD SUGAR CHECK Q4H. FULL CODE. CONTINUE ALL MEDS EXCEPT ANY DIABETIC MEDICATIONS.
--- NOTE | 2020-01-02 16:20 | NUR ---
A 69, admitted to , under the services of NAVYA Baum MD with a diagnosis of METABOLIC ENCEPHALOPATHY, HYPOGLYCEMIA. Chief complaint is DECREASED LOC. Patient arrived via stretcher from ER. Monitor applied. Initial assessment completed. Vital signs taken and recorded. NAVYA BAUM MD notified of admission to the unit. Orders received. See assessment for past medical history, medications and allergies. Patient and/or family oriented to unit. [address] visitation policy reviewed. Clothing/patient valuable form completed. ANNE SINCLAIR
--- NOTE | 2020-01-02 17:00 | NUR ---
CHECKED PATIENT'S BLOOD SUGAR. READING WAS 54. CHECKED AGAIN. READING [address] GOODSON. PATIENT IMMEDIATELY TRANSFERRED BACK TO ICCU PER DR GOODSON.
--- NOTE | 2020-01-02 17:42 | NUR ---
UPON ARRIVAL TO ICU AT 1712 PATIENT IS ALERT AND TALKING - ABLE TO GIVE NAME & ..VSS. BEDSIDE GLUCOSE CHECKED AND SHOWED 36 - 2 AMPS D50 GIVEN PER ORDERS. GLUCAGON THEN RECEVIED AND GIVEN AND IVF CHANGED TO D10 @ 60.. PATIENT EATING ICE CREAM & DRINKING MILK PER REQUEST OF DR GOODSON. IV started left hand with #22 protective cath after 1 attempts. Site prepped with Chloroprep. Sterile dressing applied. Patient tolerated procedure well. EUGENIE FONTAINE
[2020-01-02 17:53] LABS: ALBUMIN 1.9 gm/dl (3.1-4.5); CREATININE 1.57 mg/dL (0.70-1.30); POTASSIUM 4.3 mmol/L (3.5-5.1); TOTAL PROTEIN 5.9 gm/dL (6.4-8.2)
--- NOTE | 2020-01-02 19:25 | NUR ---
PATIENT RESTING IN BED. ABLE TO FOLLOW DIRECTIONS. ASSISTED PATIENT TO REPOSITIONED TO COMFORT.
--- NOTE | 2020-01-02 20:15 | NUR ---
Blood glucose reading of 54, with D10 running at 60/hr. Amp of dextrose given and D10 up to 80/hr. Patients only complaint is being cold. Encouraged snacks and or drinks, received darek carloz. Will monitor and reassess in 1hr.
--- NOTE | 2020-01-02 22:23 | NUR ---
Updated Dr. Abebe on blood sugar checks, new order to increase D10 to 100/hr.
[2020-01-03] VITALS: BP 98/55
[2020-01-03 04:00] VITALS: BP 109/52
[2020-01-03 05:59] LABS: BASO % 0.5 % (0.0-1.0); EOS # 0.2 10*3/uL (0.0-0.4); EOS % 1.9 % (1.0-4.0); HEMATOCRIT 30.1 % (42.0-52.0); LYMPH # 1.4 10*3/uL (1.3-4.4); LYMPH % 18.1 % (27.0-41.0); MEAN CELL VOLUME 94.7 fl (80.0-94.0); MEAN CORPUSCULAR HGB 29.9 pg (27.0-31.0); MEAN CORPUSCULAR HGB CONC 31.6 g/dl (33.0-37.0); MEAN PLATELET VOLUME 9.4 fl (9.6-12.3); MONO # 0.7 10*3/uL (0.1-1.0); NEUT # 5.4 10*3/uL (2.3-7.9); NEUT % 69.5 % (47.0-73.0); PLATELET COUNT AUTOMATED 267 10*3/uL (130-400); RED BLOOD COUNT 3.18 10*6/uL (4.50-5.90); RED CELL DISTRI WIDTH 13.3 % (0-14.5); WHITE BLOOD COUNT 7.8 10*3/uL (4.8-10.8)
[2020-01-03 06:01] LABS: CREATININE 1.51 mg/dL (0.70-1.30); POTASSIUM 3.9 mmol/L (3.5-5.1)
[2020-01-03 08:00] VITALS: BP 113/51
--- NOTE | 2020-01-03 09:26 | NUR ---
Awake and alert. Dr. Abebe in to evaulate. Orders were recieved. Breakfast was ordered. Assisted to bSC for large soft BM. Elayne care given. Frequent small urine outs. Bladder scan for 60 cc residual. Abdomen is firmly distended. w/ active peristalsis. [facility] was called for delivery of meds and dentures.
--- NOTE | 2020-01-03 10:34 | NUR ---
Recieved from [facility] u/l denture, cane and 2 bottles of meds which were sent to the pharmacy for identification. Megace not available as of yet. Took breakfast poorly. Again assisted to BSC for small soft BM
[2020-01-03 12:00] VITALS: BP 105/45
--- NOTE | 2020-01-03 12:23 | NUR ---
Brush Painter in to talk to Patient. Pt. states he lives at home with his Girlfriend Faiza for the last 28 years. There are several steps in the home but patient is unsure how many. Pt. Primary Care Provider is Dr. Lorraine Abebe. [facility]acy [facility]. Currently there is no Home Health Services in the Home but Pt. is receptive to Home Health. Pt. Prior ADL's are limited due to poor prognosis and he does require assistance. Pt. would be appropriate if ordered for Paliative Care Consult due to Prostate Cancer with Metastasis. Pt. states all Utilities are working. He uses a cane or walker to ambulate. No Home O2. Follow up Physician Appointments after discharge will be made by pt. Girlfriend due to schedules. Pt. declines access to the Portal. Discharge Plan is for Pt. to return home with his girlfiend. Declines SNF. states "I will take home health, Nurse whatever but I am not going to a Skilled Nursing" "I want to go home". Case Management to follow. Tiffanie Calzada LPN, Brush Painter.
[2020-01-03 16:00] VITALS: BP 116/45
--- NOTE | 2020-01-03 16:32 | NUR ---
Dr. Abebe was called re: glu at 226. Orders were recieved.
[2020-01-03 20:00] VITALS: BP 105/57
--- NOTE | 2020-01-03 20:29 | NUR ---
1950 UP TO [facility]. GAIT STEADY. WEAK. HAD LARGE BM BROWN MUSHY STOOL . BACK TO BED. HOB ELEVATED. SIDE RAILS UP X'S 2. CALL LIGHT IN REACH. PULSE OX 97% ON RA. ALERT AND ORIENTED. IV FLUIDS CONT.
--- NOTE | 2020-01-03 21:31 | NUR ---
DR. GOODSON NOTIFIED OF ELEVATED SUGAR. ORDERS RECEIVED.
[2020-01-04] VITALS: BP 124/54
--- NOTE | 2020-01-04 00:23 | NUR ---
RESTING IN BED WATCHING TV. REMAINS WITHOUT C/O'S.
--- NOTE | 2020-01-04 02:42 | NUR ---
RESTING IN BED WITH EYES CLOSED. APPEARS TO BE SLEEPING.
[2020-01-04 04:00] VITALS: BP 119/56
--- NOTE | 2020-01-04 05:11 | NUR ---
ROUTINE NORCO GIVEN ORDERED.
--- NOTE | 2020-01-04 05:52 | NUR ---
DR. GOODSON IN TO SEE PT.
--- NOTE | 2020-01-04 06:10 | NUR ---
REMAINS WITHOUT C/O'S. HEP LOCK'S INTACT X'S 2 LA. CONDITION GUARDED.
--- NOTE | 2020-01-04 06:37 | NUR ---
TRANSFERRED TO [facility] VIA W/C WITH BELONGINGS. BED ALARM APPLIED TO BED. PT IS ALERT AND ORIENTED.
--- NOTE | 2020-01-04 06:44 | NUR ---
ORIENTED TO ROOM AND CALL LIGHT. REPORT GIVEN.
--- NOTE | 2020-01-04 07:40 | NUR ---
24 HR chart check completed.
[2020-01-04 08:00] VITALS: BP 98/68
--- NOTE | 2020-01-04 08:00 | NUR ---
RESTING IN BED WITH NO ACUTE DISTRESS NOTED. RESPIRATIONS EASY. VSS. CALL LIGHT WITHIN REACH. NO VOICED COMPLAINTS. BED ALARM MAINTAINED
[2020-01-04 12:00] VITALS: BP 100/50
[2020-01-04 16:00] VITALS: BP 100/52; BP 90/46
--- NOTE | 2020-01-04 16:00 | NUR ---
SITTING IN RECLINER. NO DISTRESS NOTED. VSS. CALL LIGHT WITHIN REACH
[2020-01-04 20:00] VITALS: BP 110/44; BP 96/40
--- NOTE | 2020-01-04 21:10 | NUR ---
PATIENT STATES THAT HE DID NOT EAT DINNER. BS 106, SNACK PROVIDED. PATIENT A&O X3. ASSESSMENT COMPLETE. PATIENT HAS NO COMPLAINTS. BED IN LOW, LOCKED POS, CALL LIGHT IN REACH. CANE WITHIN REACH.
[2020-01-05] VITALS: BP 107/42
--- NOTE | 2020-01-05 04:00 | NUR ---
PATIENT SLEEPING; RESPS EASY AND NONLABORED ON ROOM AIR. CALL LIGHT IN REACH.
--- NOTE | 2020-01-05 07:48 | NUR ---
24 HR CHART CHECK COMPLETE.
[2020-01-05 08:00] VITALS: BP 116/58
--- NOTE | 2020-01-05 08:11 | NUR ---
PHYSICAL THERAPY Screen received pt admitted with severe hypoglycemia with hx of CA of the prostate with bone mets. Please consult PT if pt has a decline in functional status below baseline thank you Negra Rojas PT
--- NOTE | 2020-01-05 09:03 | NUR ---
CM in to see patient. Discussed him being discharged today. Discussed home health care services and he is agreeable. When provided with a list of agencies he chose [facility]. Referral and clinical along with face to face faxed to [facility].
[2020-01-05 12:00] VITALS: BP 112/45
--- NOTE | 2020-01-05 14:40 | NUR ---
PT REEFUSING DISCHARGE PHOTOS OF WOUNDS SAYING "SHE JUST SAW THEM"
--- NOTE | 2020-01-05 15:00 | NUR ---
Discharge instructions reviewed with patient/family. Patient receptive and verbalizes understanding. Follow-up care arranged. Written instructions given to patient/family. TIO HEATON
--- NOTE | 2020-01-05 15:55 | NUR ---
Nursing screen received and chart review completed. Patient was admitted after a change in mental status and a fall out of bed. Patient to be discharged to home today. At this time no further OT indicated. Thank you. Ann Caban OTR/l
== END 2020-01-05 16:31 | disposition hospice, home (50) | DRG 637 ==
LOC: ED 10:09 → EDHOLD 13:07 → 4E 13:43 → ICCU 17:12 → 4E 01-04 06:51
PROVIDERS: Emergency Medicine; ADMIT Internal Medicine; ATTEND Internal Medicine
DX: E11.649 Type 2 diabetes mellitus with hypoglycemia without coma (principal); G93.41 Metabolic encephalopathy; C79.51 Secondary malignant neoplasm of bone; I48.21 Permanent atrial fibrillation; E44.0 Moderate protein-calorie malnutrition; I25.10 Atherosclerotic heart disease of native coronary artery without angina pectoris; G89.29 Other chronic pain; C61 Malignant neoplasm of prostate; I12.9 Hypertensive chronic kidney disease with stage 1 through stage 4 chronic kidney disease, or unspecified chronic kidney disease; R62.7 Adult failure to thrive; M54.5 Low back pain; E83.51 Hypocalcemia; Z79.01 Long term (current) use of anticoagulants; Z95.1 Presence of aortocoronary bypass graft; Z68.33 Body mass index [BMI] 33.0-33.9, adult

== ENCOUNTER → 2020-01-16 | Outpatient (CLI) | payer OTHER ==
[~2020-01-16] MED LIST changes: +ABIRATERONE AC250 MG PO; +BICALUTAMIDE50 MG PO; +CALCIUM CARBON600 M4 PO; +GLIMEPIRIDE4 M1 PO; +MORPHINE SULFAT15 M7 PO; +MYRBETRIQ25 M1 PO; +NATURE'S BLEND F1 MG PO; +POTASSIUM CHLO20 ME3 PO; +PREDNISONE5 MG PO; +SOF-LAX100 MG PO; +VITAMIN D-40010 MCG PO; +VITAMIN D3125 MCG PO; +ZYTIGA500 MG PO
[2020-01-16 16:56] LABS: MEAN CELL VOLUME 94.9 fl (80.0-94.0); MEAN CORPUSCULAR HGB 29.4 pg (27.0-31.0); MEAN PLATELET VOLUME 9.7 fl (9.6-12.3); PLATELET COUNT AUTOMATED 338 10*3/uL (130-400); RED BLOOD COUNT 3.16 10*6/uL (4.50-5.90); RED CELL DISTRI WIDTH 13.3 % (0-14.5); WHITE BLOOD COUNT 7.1 10*3/uL (4.8-10.8)
[2020-01-16 17:12] LABS: CREATININE 1.45 mg/dL (0.70-1.30); POTASSIUM 4.7 mmol/L (3.5-5.1)
[2020-01-16 17:14] LABS: TOTAL PROTEIN 6.6 gm/dL (6.4-8.2)
[2020-01-16 17:26] LABS: BASOPHILS 2 % (0-1); PLATELET SUFFICIENCY NORMAL (NORMAL); POLYCHROMASIA SLIGHT; TOTAL CELLS COUNTED 100 #CELLS
[2020-01-16 17:27] LABS: STOMATOCYTE FEW
[2020-01-16 17:28] LABS: BURR CELLS FEW
== END | disposition home or self-care (01) ==
LOC: LAB 15:49
PROVIDERS: ATTEND Internal Medicine Hematology & Oncology
DX: C61 Malignant neoplasm of prostate (principal)

== ENCOUNTER → 2020-01-19 | Outpatient (CLI) | payer OTHER | END | disposition home or self-care (01) | LOC: LAB 14:09 | PROVIDERS: ATTEND Internal Medicine Hematology & Oncology | DX: C61 Malignant neoplasm of prostate (principal) ==

== ENCOUNTER 2020-01-24 05:43 | Inpatient (IN) | payer OTHER ==
[2020-01-24] VITALS (10 sets, daily range): BP systolic 80–123; BP diastolic 00–60
[~2020-01-24] VITALS: Ht 160 cm; Wt 78.7 kg
[2020-01-24 06:16] LABS: BASO % 0.3 % (0.0-1.0); EOS % 0.4 % (1.0-4.0); HEMATOCRIT 27.7 % (42.0-52.0); LYMPH # 0.7 10*3/uL (1.3-4.4); LYMPH % 10.4 % (27.0-41.0); MEAN CELL VOLUME 93.6 fl (80.0-94.0); MEAN CORPUSCULAR HGB 29.4 pg (27.0-31.0); MEAN CORPUSCULAR HGB CONC 31.4 g/dl (33.0-37.0); MEAN PLATELET VOLUME 9.7 fl (9.6-12.3); MONO # 0.5 10*3/uL (0.1-1.0); MONO % 6.7 % (3.0-9.0); NEUT # 5.5 10*3/uL (2.3-7.9); NEUT % 80.2 % (47.0-73.0); PLATELET COUNT AUTOMATED 245 10*3/uL (130-400); RED BLOOD COUNT 2.96 10*6/uL (4.50-5.90); RED CELL DISTRI WIDTH 13.7 % (0-14.5); WHITE BLOOD COUNT 6.9 10*3/uL (4.8-10.8)
[2020-01-24 06:27] LABS: ACT PARTIAL THROMBO TIME 54.1 SECONDS (20.0-32.1); INTERNATIONAL NORM RATIO 1.7 (2.0-3.5)
[2020-01-24 06:33] LABS: ALBUMIN 1.9 gm/dl (3.1-4.5); ALKALINE PHOSPHATASE 490 U/L (45-117); BUN 46 mg/dl (7-24); CHLORIDE 108 mmol/L (98-107); CREATININE 2.78 mg/dL (0.70-1.30); LIPASE 283 U/L (73-393); POTASSIUM 3.9 mmol/L (3.5-5.1); SGOT/AST 106 IU/L (3-35); SGPT/ALT 22 U/L (12-78); SODIUM 135 mmol/L (136-145); TOTAL PROTEIN 6.3 gm/dL (6.4-8.2)
[2020-01-24 06:40] LABS: TROPONIN I < 0.015 ng/ml (<0.045)
[2020-01-24 10:52] LABS: BILIRUBIN Negative (Negative); BLOOD Trace-Lysed (Negative); COLOR Dark Yellow (Yellow); GLUCOSE Negative (Negative); KETONE Trace (Negative); LEUKO ESTERASE Trace (Negative); NITRITE Negative (Negative)
[2020-01-24 11:03] LABS: CLARITY Cloudy (Clear)
[2020-01-24 11:05] LABS: RBC 0-2 rbc/hpf (0-2)
[2020-01-24] MEDS ORDERED: MEGACE 40400 MG/10 PO (17:08)
[2020-01-24] MEDS ORDERED: MS CONTIN30 MG PO (17:09)
[2020-01-24 23:44] LABS: ALBUMIN 1.7 gm/dl (3.1-4.5); CREATININE 2.18 mg/dL (0.70-1.30); POTASSIUM 3.8 mmol/L (3.5-5.1); TOTAL PROTEIN 5.9 gm/dL (6.4-8.2)
[2020-01-25] VITALS: BP 125/50
[2020-01-25 01:10] LABS: ABG BASE EXCESS -16.2 mmol/L (-2.0-2.0); ARTERIAL BLOOD GAS PH 7.365 (7.35-7.45)
[2020-01-25 06:22] LABS: HEMATOCRIT 32.1 % (42.0-52.0); MEAN CELL VOLUME 99.7 fl (80.0-94.0); MEAN CORPUSCULAR HGB 29.8 pg (27.0-31.0); MEAN CORPUSCULAR HGB CONC 29.9 g/dl (33.0-37.0); NUCLEATED RED BLOOD CELL 0.1 10*3/uL (0.0-0.0); NUCLEATED RED BLOOD CELL 1.8 % (0.0-0.0); PLATELET COUNT AUTOMATED 434 10*3/uL (130-400); RED BLOOD COUNT 3.22 10*6/uL (4.50-5.90); RED CELL DISTRI WIDTH 14.3 % (0-14.5); WHITE BLOOD COUNT 5.5 10*3/uL (4.8-10.8)
[2020-01-25 06:34] LABS: CREATININE 2.51 mg/dL (0.70-1.30); POTASSIUM 4.4 mmol/L (3.5-5.1)
[2020-01-25 06:37] VITALS: BP 102/50
[2020-01-25 07:01] LABS: ATYPICAL LYMPHS 1 % (0-0); BASOPHILS 1 % (0-1); BURR CELLS MODERATE; PLATELET SUFFICIENCY HIGH (NORMAL); SCHISTOCYTES FEW; TOTAL CELLS COUNTED 100 #CELLS
== END 2020-01-25 07:44 | disposition expired | DRG 441 ==
LOC: ED 05:43 → EDHOLD 13:12 → 4E 13:12
PROVIDERS: Emergency Medicine; Emergency Medicine Emergency Medical Services; Internal Medicine Nephrology; ADMIT Internal Medicine; ATTEND Internal Medicine
DX: K72.90 Hepatic failure, unspecified without coma (principal); N17.0 Acute kidney failure with tubular necrosis; J96.00 Acute respiratory failure, unspecified whether with hypoxia or hypercapnia; C79.51 Secondary malignant neoplasm of bone; I48.21 Permanent atrial fibrillation; I95.9 Hypotension, unspecified; N18.9 Chronic kidney disease, unspecified; E86.0 Dehydration; C61 Malignant neoplasm of prostate; I25.10 Atherosclerotic heart disease of native coronary artery without angina pectoris; D63.8 Anemia in other chronic diseases classified elsewhere; E78.2 Mixed hyperlipidemia; R62.7 Adult failure to thrive; K59.09 Other constipation; R33.9 Retention of urine, unspecified; M15.9 Polyosteoarthritis, unspecified; M47.816 Spondylosis without myelopathy or radiculopathy, lumbar region; I10 Essential (primary) hypertension; G89.29 Other chronic pain; E11.9 Type 2 diabetes mellitus without complications; T14.8XXA Other injury of unspecified body region, initial encounter; W18.30XA Fall on same level, unspecified, initial encounter; Z51.5 Encounter for palliative care; Y93.89 Activity, other specified; Y92.128 Other place in nursing home as the place of occurrence of the external cause; Y99.8 Other external cause status; Z98.42 Cataract extraction status, left eye; Z98.41 Cataract extraction status, right eye; Z82.49 Family history of ischemic heart disease and other diseases of the circulatory system; Z68.30 Body mass index [BMI] 30.0-30.9, adult